=== PATIENT | male | born 1955 | race Two or more races ===

== ENCOUNTER → 2022-05-23 | Outpatient (CLI) | payer MEDICARE, OTHER ==
[2022-05-23 13:02] LABS: BILIRUBIN,URINE NEGATIVE (NEGATIVE); COLOR,URINE YELLOW (YELLOW); LEUKOCYTE ESTERASE ,URINE NEGATIVE (NEGATIVE); NITRITE, URINE NEGATIVE (NEGATIVE); PH,URINE 5.5 (5.0-8.0); PROTEIN,URINE NEGATIVE (NEGATIVE); UGLUCOSE NEGATIVE (NEGATIVE); UROBILINOGEN,URINE 0.2 EU/dL (0.2)
[2022-05-23 13:05] LABS: BASOPHILS # (AUTO) 0.1 K/uL (0.0-0.2); BASOPHILS % (AUTO) 0.8 % (0.0-2.0); EOSINOPHILS % (AUTO) 1.9 % (0.0-6.0); HEMATOCRIT 41 % (39-51); LYMPHOCYTES # (AUTO) 1.8 K/uL (0.8-4.8); LYMPHOCYTES % (AUTO) 23.3 % (20.0-44.0); MEAN CORPUSCULAR HGB CONC 34 g/dl (31.0-36.0); MEAN CORPUSCULAR VOLUME 87 fL (80-96); MONOCYTES # (AUTO) 0.7 K/uL (0.1-1.30); MONOCYTES % (AUTO) 9.6 % (2.0-12.0); NEUTROPHILS % (AUTO) 64.4 % (43.0-81.0); PLATELET COUNT (AUTO) 230 K/uL (150-450); RED BLOOD CELL COUNT(AUTO) 4.72 MIL/uL (4.5-6.0); WHITE BLOOD COUNT (AUTO) 7.8 K/uL (4.3-11.0)
[2022-05-23 13:14] LABS: CALCIUM, SERUM 9.8 mg/dL (8.5-10.1); CREATININE 1.1 mg/dL (0.6-1.3); POTASSIUM 4.2 mmol/L (3.5-5.1)
== END | disposition home or self-care (01) ==
LOC: RAD 11:45
PROVIDERS: ATTEND Dentist Oral and Maxillofacial Surgery
DX: Z01.818 Encounter for other preprocedural examination (principal); R94.31 Abnormal electrocardiogram [ECG] [EKG]
CPT/HCPCS: 36415; 71045-TC; 80048-TC; 85025-TC; 85610-TC; 85730-TC

== ENCOUNTER 2022-06-03 11:31 | Outpatient (CLI) | payer MEDICARE, OTHER ==
[2022-06-08] MEDS ORDERED: ACET325T53 PO (15:43)
[2022-06-08] MEDS ORDERED: TRAM50TA2 PO (15:43)
[2022-06-08] MEDS ORDERED: AMOX1TAB16 PO (15:43)
== END 2022-06-03 23:59 | disposition home or self-care (01) ==
LOC: LAB 11:31
PROVIDERS: ATTEND Dentist Oral and Maxillofacial Surgery
DX: Z01.812 Encounter for preprocedural laboratory examination (principal); Z20.822 Contact with and (suspected) exposure to COVID-19
CPT/HCPCS: U0003; C9803

== ENCOUNTER 2022-06-07 05:33 | Inpatient (IN) | payer MEDICARE, OTHER ==
[~2022-06-07] VITALS: Ht 188 cm; Wt 104.3 kg
[2022-06-07] MEDS ORDERED: ANESTHESIA TRAY IN PYXIS 1 EA TRAY MC ONE (06:55)
[2022-06-07] MEDS ORDERED: DEXAMETHASONE SOD PHOSPHATE 10 MG/ML VIAL ONE (06:56)
[2022-06-07] MEDS ORDERED: LIDOCAINE 2%-EPI 1:100,000 30 ML VIAL ONE (06:56)
[2022-06-07] MEDS ORDERED: VANCOMYCIN 1 GM VIAL ONE (06:56)
[2022-06-07] MEDS ORDERED: OXYMETAZOLINE HCL NASAL SPRAY 30 ML BOTTLE NS ONE (06:58)
[2022-06-07] MEDS ORDERED: FENTANYL PF 100MCG/2ML AMPUL ONE (07:19)
[2022-06-07] MEDS ORDERED: ROCURONIUM BROMIDE 50 MG/5 ML ONE (07:19)
[2022-06-07] MEDS ORDERED: FAMOTIDINE/PF INJ 20 MG/2 ML VIAL IV ONE (07:19)
[2022-06-07] MEDS ORDERED: MIDAZOLAM HCL 2 MG/2ML VIAL ONE (07:27)
[2022-06-07] MEDS ORDERED: KETAMINE HCL IN 0.9 % NACL 5 ML ONE (07:28)
[2022-06-07] MEDS ORDERED: ALBUTEROL SULFATE 8 GM HFA.AER.AD IH ONE (07:31)
[2022-06-07] MEDS ORDERED: SEVOFLURANE 250 ML BOTTLE IH ONE (10:14)
[2022-06-07] MEDS ORDERED: IV NS 0.9% 1,000 ML IV PRN (12:30)
[2022-06-07] MEDS ORDERED: ACETAMINOPHEN 325 MG TABLET PO PRN (12:30)
--- NOTE | 2022-06-07 13:30 | NUR ---
MS UTILITY FORESTER NOTE (STATUS POST DAY SURGERY) Patient arrived to [facility]Surg. Unit, Room 317- bed 2, via gurney from status post surgery/recovery room, status post ORIF of the maxilla at 12:40 hours. . Patient was alert, oriented x 4, wide awake, irritable, but otherwise cooperative, speaking mostly Haitian. Vital signs were stable: BP = 131/68; HR= 87; RR= 20; T = 97.8 axillary; 96% on room air; pain = 6/10 level to back. Given tylenol 650 mg PO for back pain, results pending. Aspiration and fall precautions maintained. With the help of patient's daughter translating into Haitian, oriented patient to room and safety protocols.l Patient able to successfully swallow ice chips, sips of water and tylenol pills without any signs of aspiration. Will advance patient to soft diet for dinner. Will continue to monitor and care for patient per MD POC.
[2022-06-07] MEDS ORDERED: Z GUARD REMEDY 4 OZ OINT TP PRN (14:00)
[2022-06-07] MEDS ORDERED: MORPHINE SULFATE INJ 2 MG/ML DISP.SYRIN IV PRN (14:00)
[2022-06-07] MEDS ORDERED: MAGNESIUM HYDROXIDE 30 ML UDC PO PRN (14:00)
[2022-06-07] MEDS ORDERED: ZOLPIDEM TARTRATE 5 MG TABLET PO PRN (14:00)
[2022-06-07] MEDS ORDERED: ONDANSETRON HCL/PF 4 MG/2 ML VIAL IVP PRN (14:00)
[2022-06-07] MEDS ORDERED: MAG HYDROX/AL HYDROX/SIMETH 30 ML UDC PO PRN (14:00)
[2022-06-07] MEDS ORDERED: OLME1TAB90 PO (14:49)
[2022-06-07] MEDS ORDERED: ALLO300T2 PO (14:49)
[2022-06-07] MEDS ORDERED: ALBU18HF2 IH (14:49)
[2022-06-07] MEDS: IV NS 0.9% 1,000 ML IV PRN (15:25)
[2022-06-07] MEDS ORDERED: ALBUTEROL FS 2.5 MG/3 ML VIAL.NEB NEB PRN (15:30)
[2022-06-07 16:00] VITALS: BP 92/42
--- NOTE | 2022-06-07 18:53 | NUR ---
MS RN CLOSING NOTE (DAY SHIFT) Patient sleeping peacefully on left side of body, flat in bed, with even regular respirations without any signs of distress. Patient has PIV catheter # 20 gauge to left hand with clean, dry, intact dressing, patent, being infused with NS @75 mLs/hr. without any signs of complications of IV therapy. Fall precautions maintained : bed in lowest position; bed brakes locked; two bed side rails up; bed alarm on; and call lowry/light with bed side table within reach of patient. Patient did not like taste of dinner hospital food meal. Family brought in soft mashed potatoes which patient ate heartily. Will endorse to night shift manager RN for DANNIE.
--- NOTE | 2022-06-07 19:45 | NUR ---
MS RN CLOSING NOTES RECEIVED PATIENT IN BED AWAKE RESTING COMFORTABLY. A/O X 4. NO S/S OF PAIN NOTED AT THIS TIME. ON ROOM AIR, BREATHING EVEN AND UNLABORED, NO DISTRESS OR SHORTNESS OF BREATH NOTED. IV ACCESS ON LEFT HAND #20G RUNNING NS @ 75ML/HR. FALL AND SAFETY MEASURE IN PLACE WITH BED IN LOWEST LOCKED POSITION. BED ALARM ON. SIDE RAILS UP X 2. CALL LIGHT AND TRAY WITHIN EASY REACH. WILL CONTINUE TO MONITOR THE PATIENT. Addendum: 06/07/22 at 2203 by GOKUL LUIS RN MS RN OPENING NOTES
[2022-06-07 20:00] VITALS: BP 120/56
[2022-06-07] MEDS: AMOX/CLAVULANATE 875 MG TABLET PO SCH (21:15)
[2022-06-07] MEDS: ACETAMINOPHEN 325 MG TABLET PO PRN (21:23)
--- NOTE | 2022-06-07 21:23 | NUR ---
RN NOTES-TYLENOL GIVEN PATIENT C/O OF HEADACHE WITH A SCALE OF 5/10. TYLENOL 650MG TAB GIVEN PRN. WILL CONTINUE TO MONITOR THE PATIENT.
[2022-06-07 21:50] VITALS: BP 120/56
[2022-06-08 01:37] VITALS: BP 120/56
[2022-06-08] MEDS: IV NS 0.9% 1,000 ML IV PRN (02:41)
[2022-06-08 06:00] LABS: BASOPHILS % (AUTO) 0.2 % (0.0-2.0); EOSINOPHILS % (AUTO) 0.3 % (0.0-6.0); HEMATOCRIT 36 % (39-51); HEMOGLOBIN 11.8 g/dL (13.5-17.5); LYMPHOCYTES # (AUTO) 1.7 K/uL (0.8-4.8); LYMPHOCYTES % (AUTO) 11.7 % (20.0-44.0); MEAN CORPUSCULAR HGB CONC 33 g/dl (31.0-36.0); MEAN CORPUSCULAR VOLUME 88 fL (80-96); MONOCYTES # (AUTO) 1.1 K/uL (0.1-1.30); MONOCYTES % (AUTO) 7.6 % (2.0-12.0); NEUTROPHILS # (AUTO) 11.8 K/uL (1.8-8.9); NEUTROPHILS % (AUTO) 80.2 % (43.0-81.0); PLATELET COUNT (AUTO) 200 K/uL (150-450); WHITE BLOOD COUNT (AUTO) 14.7 K/uL (4.3-11.0)
[2022-06-08] MEDS: ACETAMINOPHEN 325 MG TABLET PO PRN (06:12)
--- NOTE | 2022-06-08 06:12 | NUR ---
RN NOTES-TYLENOL GIVEN PATIENT C/O OF HEADACHE WITH A SCALE OF 3/10. TYLENOL 650MG TAB GIVEN PRN. WILL CONTINUE TO MONITOR THE PATIENT.
[2022-06-08 06:23] LABS: CALCIUM, SERUM 8.5 mg/dL (8.5-10.1); CREATININE 1.1 mg/dL (0.6-1.3); MAGNESIUM 2.3 mg/dL (1.8-2.4); PHOSPHORUS 2.6 mg/dL (2.5-4.9)
--- NOTE | 2022-06-08 06:57 | NUR ---
MS RN OPENING NOTES PATIENT IN BED AWAKE RESTING COMFORTABLY. PATIENT IS MOSTLY AWAKE AT NIGHT. A/O X 4. NO S/S OF PAIN NOTED AT THIS TIME. ON ROOM AIR, BREATHING EVEN AND UNLABORED, NO DISTRESS OR SHORTNESS OF BREATH NOTED. IV ACCESS ON LEFT HAND #20G RUNNING NS @ 75ML/HR. FALL AND SAFETY MEASURE MAINTAINED WITH BED IN LOWEST LOCKED POSITION. BED ALARM ON. SIDE RAILS UP X 2. CALL LIGHT AND TRAY WITHIN EASY REACH. WILL ENDORSE TO THE NEXT SHIFT. Addendum: 06/08/22 at 0658 by GOKUL LUIS RN MS ELIZABETH CLOSING NOTES
[2022-06-08 07:00] VITALS: BP 116/62
--- NOTE | 2022-06-08 07:00 | NUR ---
MS RN CLOSING NOTES RECEIVED PATIENT IN BED AWAKE RESTING COMFORTABLY. PATIENT IS S/P ORIF MAXILLA. AZERBAIJANI SPEAKING WITH BASIC ITALIAN. 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 A/O X 4. NO S/S OF PAIN, SHORTNESS OF BREATH OR ANY DISTRESS NOTED. ON ROOM AIR, BREATHING EVEN AND UNLABORED, IV ACCESS ON LEFT HAND #20G RUNNING NS @ 75ML/HR. FALL AND SAFETY MEASURE IN PLACE WITH BED IN LOWEST LOCKED POSITION. BED ALARM ON. SIDE RAILS UP X 2. CALL LIGHT AND TRAY WITHIN EASY REACH. WILL CONTINUE TO MONITOR THE PATIENT.
[2022-06-08] MEDS ORDERED: ALLOPURINOL 100 MG TABLET PO SCH (09:00)
[2022-06-08] MEDS ORDERED: Medication Not On Formulary EA (Olmesartan/Hydrochlorothiazide (Olmesartan-Hctz 40-12.5 PO SCH (09:00)
[2022-06-08] MEDS ORDERED: HYDROCHLOROTHIAZIDE 25 MG TABLET PO SCH (09:00)
[2022-06-08] MEDS ORDERED: LOSARTAN POTASSIUM 50 MG TABLET PO SCH (09:00)
[2022-06-08] MEDS: AMOX/CLAVULANATE 875 MG TABLET PO SCH (09:24)
[2022-06-08] MEDS ORDERED: TRAM50TA2 PO (15:43)
[2022-06-08] MEDS ORDERED: ACET325T53 PO (15:43)
[2022-06-08] MEDS ORDERED: AMOX1TAB16 PO (15:43)
[2022-06-08 16:00] VITALS: BP 118/62
--- NOTE | 2022-06-08 18:56 | NUR ---
MS JOHNSONTREATMENT PLANT OPERATOR NOTES DISCHARGE PATIENT TO HOME IN STABLE CONDITION, A/O X4 ABLE TO MAKE NEEDS KNOWN. PATIENT'S BELONGINGS ACCOUNTED FOR, IV REMOVED-C/D/I, PATIENT WAS GIVEN DISCHARGE INSTRUCTIONS BOTH VERBALLY AND IN WRITING. PATIENT IS [place] SPEAKING WITH DAUGHTER AT BEDSIDE TRANSLATING IN ITALIAN. PATIENT LEFT THE UNIT AT 1730 IN STABLE CONDITION VIA PRIVATE CAR WITH DAUGHTER PRESENT. Addendum: 06/08/22 at 1906 by NORM FRANKEL JR, RN CHARGE NURSE AWARE OF THE DISCHARGE
== END 2022-06-08 17:30 | disposition home or self-care (01) | DRG 140 ==
LOC: DS 05:33 → MED 05:34
PROVIDERS: ADMIT Nurse Practitioner Acute Care; ATTEND Nurse Practitioner Acute Care
PROC: 0NUT07Z Supplement Right Mandible with Autologous Tissue Substitute, Open Approach (ICD-10-PCS; principal; 2022-06-07)
PROC: 0NUV07Z Supplement Left Mandible with Autologous Tissue Substitute, Open Approach (ICD-10-PCS; principal; 2022-06-07)
PROC: 0NBR0ZX Excision of Maxilla, Open Approach, Diagnostic (ICD-10-PCS; principal; 2022-06-07)
PROC: 0NBV0ZX Excision of Left Mandible, Open Approach, Diagnostic (ICD-10-PCS; principal; 2022-06-07)
PROC: 0NSR04Z Reposition Maxilla with Internal Fixation Device, Open Approach (ICD-10-PCS; principal; 2022-06-07)
PROC: 0NST04Z Reposition Right Mandible with Internal Fixation Device, Open Approach (ICD-10-PCS; principal; 2022-06-07)
PROC: 0NUR07Z Supplement Maxilla with Autologous Tissue Substitute, Open Approach (ICD-10-PCS; principal; 2022-06-07)
PROC: 09BR0ZZ Excision of Left Maxillary Sinus, Open Approach (ICD-10-PCS; principal; 2022-06-07)
PROC: 0NBT0ZX Excision of Right Mandible, Open Approach, Diagnostic (ICD-10-PCS; principal; 2022-06-07)
PROC: 0NSV04Z Reposition Left Mandible with Internal Fixation Device, Open Approach (ICD-10-PCS; principal; 2022-06-07)
DX: M27.2 Inflammatory conditions of jaws (principal); J18.9 Pneumonia, unspecified organism; S02.40CA Maxillary fracture, right side, initial encounter for closed fracture; S02.40DA Maxillary fracture, left side, initial encounter for closed fracture; S02.609A Fracture of mandible, unspecified, initial encounter for closed fracture; J32.0 Chronic maxillary sinusitis; X58.XXXA Exposure to other specified factors, initial encounter; Y93.9 Activity, unspecified; Y92.9 Unspecified place or not applicable; D72.829 Elevated white blood cell count, unspecified; K21.9 Gastro-esophageal reflux disease without esophagitis; J45.909 Unspecified asthma, uncomplicated; I10 Essential (primary) hypertension; G20 Parkinson's disease; F17.210 Nicotine dependence, cigarettes, uncomplicated; E78.5 Hyperlipidemia, unspecified
CPT/HCPCS: 36415; 71250-TC; 80048-TC; 83735-TC; 84100-TC; 85025-TC; 86850-TC; 87081-TC; A4217; A4223; C1713; C1781; G0378; J1100; J2250; J2405; J2704; J3010; J3370; J3490; J7030; J7050

== ENCOUNTER 2022-11-29 05:42 | Inpatient (IN) | payer MEDICARE, OTHER ==
[~2022-11-29] VITALS: Ht 185.4 cm; Wt 114.3 kg
[2022-11-29] VITALS (7 sets, daily range): BP systolic 115–161; BP diastolic 62–121; TEMP 97.5–99.5; O2SAT 95–99
[~2022-11-29 05:42] MED LIST: ACET325T53 PO; ALBU18HF2 IH; ALLO300T2 PO; AMOX1TAB16 PO; OLME1TAB90 PO; TRAM50TA2 PO
[2022-11-29] MEDS ORDERED: dexaMETHasone SOD PHOSPHATE 10 MG/ML VIAL ONE (07:11)
[2022-11-29] MEDS ORDERED: LIDOCAINE 2%-EPI 1:100,000 30 ML VIAL ONE (07:11)
[2022-11-29] MEDS ORDERED: VANCOMYCIN 1 GM VIAL ONE (07:11)
[2022-11-29] MEDS ORDERED: FENTANYL PF 250MCG/5ML AMPUL ONE (07:43)
[2022-11-29] MEDS ORDERED: SEVOFLURANE 250 ML BOTTLE IH ONE (08:06)
[2022-11-29] MEDS ORDERED: IV NS 0.9% 1,000 ML IV PRN (10:00)
[2022-11-29] MEDS ORDERED: ONDANSETRON HCL/PF 4 MG/2 ML VIAL IV PRN (10:00)
[2022-11-29] MEDS ORDERED: HYDROMORPHONE 1 MG/1 ML DISP.SYRIN IV PRN (10:00)
[2022-11-29] MEDS ORDERED: ACETAMINOPHEN 325 MG TABLET PO PRN (10:00)
[2022-11-29] MEDS ORDERED: CLON0.5T4 PO (11:31)
[2022-11-29] MEDS ORDERED: AMYL1CAP58 PO (11:31)
[2022-11-29] MEDS ORDERED: MECL-159 PO (11:31)
[2022-11-29] MEDS ORDERED: OLME1TAB88 PO (11:31)
[2022-11-29] MEDS ORDERED: HYDR-3980 PO (11:32)
[2022-11-29] MEDS ORDERED: AMOX1TAB16 PO (11:32)
[2022-11-29] MEDS ORDERED: DICL1PAT7 TP (12:40)
[2022-11-29] MEDS ORDERED: VILA10TA PO (12:40)
[2022-11-29] MEDS ORDERED: ATOR10TA PO (12:40)
[2022-11-29] MEDS ORDERED: MELA5TAB PO (12:40)
[2022-11-29] MEDS ORDERED: CARB1TAB21 PO (12:40)
[2022-11-29] MEDS ORDERED: PRIM50TA27 PO (12:40)
[2022-11-29] MEDS ORDERED: CELE200C PO (12:40)
[2022-11-29] MEDS ORDERED: MECLIZINE HCL 25 MG TABLET PO PRN (16:00)
[2022-11-29] MEDS ORDERED: clonazePAM 0.5 MG TABLET PO PRN (16:00)
[2022-11-29] MEDS: CARBIDOPA/LEVODOPA 25/100 MG 1 UDTAB PO SCH (17:00)
[2022-11-29] MEDS: VANCOMYCIN 1 GM in IV D5W 250ml IV SCH (20:51)
[2022-11-30 08:00] VITALS: BP 111/60; TEMP 97.9; O2SAT 98
[2022-11-30] MEDS: VANCOMYCIN 1 GM in IV D5W 250ml IV SCH (08:15)
[2022-11-30 08:45] VITALS: BP 111/60
[2022-11-30] MEDS: CARBIDOPA/LEVODOPA 25/100 MG 1 UDTAB PO SCH (08:46)
[2022-11-30] MEDS ORDERED: LOSARTAN POTASSIUM 50 MG TABLET PO SCH (09:00)
[2022-11-30] MEDS ORDERED: ATORVASTATIN 10 MG TABLET PO SCH (09:00)
[2022-11-30] MEDS ORDERED: HYDROCHLOROTHIAZIDE 25 MG TABLET PO SCH (09:00)
[2022-11-30] MEDS ORDERED: PRIMIDONE 50 MG TABLET PO SCH (09:00)
[2022-11-30] MEDS ORDERED: ALLOPURINOL 100 MG TABLET PO SCH (09:00)
== END 2022-11-30 11:45 | disposition home or self-care (01) | DRG 908 ==
LOC: DS 05:42 → MED 05:44
PROVIDERS: ADMIT Internal Medicine; ATTEND Internal Medicine
PROC: 0NST04Z Reposition Right Mandible with Internal Fixation Device, Open Approach (ICD-10-PCS; principal; 2022-11-29)
PROC: 0NSR04Z Reposition Maxilla with Internal Fixation Device, Open Approach (ICD-10-PCS; 2022-11-29)
PROC: 0NUR07Z Supplement Maxilla with Autologous Tissue Substitute, Open Approach (ICD-10-PCS; 2022-11-29)
PROC: 0NUT07Z Supplement Right Mandible with Autologous Tissue Substitute, Open Approach (ICD-10-PCS; 2022-11-29)
PROC: 0NP00JZ Removal of Synthetic Substitute from Skull, Open Approach (ICD-10-PCS; 2022-11-29)
PROC: 0NSV04Z Reposition Left Mandible with Internal Fixation Device, Open Approach (ICD-10-PCS; 2022-11-29)
PROC: 0NPW04Z Removal of Internal Fixation Device from Facial Bone, Open Approach (ICD-10-PCS; 2022-11-29)
PROC: 0NBT0ZX Excision of Right Mandible, Open Approach, Diagnostic (ICD-10-PCS; 2022-11-29)
PROC: 0NBR0ZX Excision of Maxilla, Open Approach, Diagnostic (ICD-10-PCS; 2022-11-29)
DX: T86.831 Bone graft failure (principal); M84.6 Pathological fracture in other disease; T84.7XXA Infection and inflammatory reaction due to other internal orthopedic prosthetic devices, implants and grafts, initial encounter; I10 Essential (primary) hypertension; E78.5 Hyperlipidemia, unspecified; F17.210 Nicotine dependence, cigarettes, uncomplicated; J45.909 Unspecified asthma, uncomplicated; Y83.2 Surgical operation with anastomosis, bypass or graft as the cause of abnormal reaction of the patient, or of later complication, without mention of misadventure at the time of the procedure; Z95.810 Presence of automatic (implantable) cardiac defibrillator; G20.A1 Parkinson's disease without dyskinesia, without mention of fluctuations; Y92.89 Other specified places as the place of occurrence of the external cause
CPT/HCPCS: 36415; 80202-TC; 82962-TC; 87081-TC; A4223; C1713; G0378; J0461; J1100; J2704; J3010; J3370; J3490; J7030; J7042; J7060

== ENCOUNTER 2023-05-16 05:44 | Inpatient (IN) | payer MEDICARE, OTHER ==
[2023-05-16] VITALS (9 sets, daily range): BP systolic 102–129; BP diastolic 58–71; TEMP 97.5–98.8; O2SAT 93–98
[~2023-05-16] VITALS: Ht 188 cm; Wt 108.9 kg
[~2023-05-16 05:44] MED LIST changes: -ACET325T53 PO; +AMYL1CAP58 PO; +ATOR10TA PO; +CARB1TAB21 PO; +CELE200C PO; +CLON0.5T4 PO; +DICL1PAT7 TP; +HYDR-3980 PO; +MECL-159 PO; +MELA5TAB PO; +OLME1TAB88 PO; -OLME1TAB90 PO; +PRIM50TA27 PO; -TRAM50TA2 PO; +VILA10TA PO
[2023-05-16] MEDS ORDERED: dexaMETHasone SOD PHOSPHATE 2 ML ONE (07:41)
[2023-05-16] MEDS ORDERED: LIDOCAINE 2%-EPI 1:100,000 30 ML VIAL ONE (07:41)
[2023-05-16] MEDS ORDERED: ANESTHESIA TRAY IN PYXIS 1 EA TRAY MC ONE (07:41)
[2023-05-16] MEDS ORDERED: VANCOMYCIN 1 GM VIAL ONE (07:41)
[2023-05-16] MEDS ORDERED: FENTANYL PF 100MCG/2ML AMPUL ONE (07:47)
[2023-05-16] MEDS ORDERED: SUCCINYLCHOLINE CHLORIDE 20 MG/ML VIAL ONE (09:23)
[2023-05-16] MEDS ORDERED: ONDANSETRON HCL/PF 4 MG/2 ML VIAL IVP PRN (12:30)
[2023-05-16] MEDS: IV NS 0.9% 1,000 ML IV PRN (13:00)
[2023-05-16] MEDS: HYDROMORPHONE 1 MG/1 ML DISP.SYRIN IV PRN (15:37)
[2023-05-16] MEDS: ACETAMINOPHEN 325 MG TABLET PO PRN (22:28)
[2023-05-17 08:00] VITALS: BP 105/56; TEMP 97.6; O2SAT 95
== END 2023-05-17 11:10 | disposition home or self-care (01) | DRG 908 ==
LOC: DS 05:44 → MED 12:45
PROC: 0NPW04Z Removal of Internal Fixation Device from Facial Bone, Open Approach (ICD-10-PCS; principal; 2023-05-16)
PROC: 0NPW0JZ Removal of Synthetic Substitute from Facial Bone, Open Approach (ICD-10-PCS; 2023-05-16)
PROC: 0NUV0JZ Supplement Left Mandible with Synthetic Substitute, Open Approach (ICD-10-PCS; 2023-05-16)
PROC: 0NUR07Z Supplement Maxilla with Autologous Tissue Substitute, Open Approach (ICD-10-PCS; 2023-05-16)
PROC: 0NBT0ZZ Excision of Right Mandible, Open Approach (ICD-10-PCS; 2023-05-16)
DX: T86.831 Bone graft failure (principal); S02.40CK Maxillary fracture, right side, subsequent encounter for fracture with nonunion; T84.69XA Infection and inflammatory reaction due to internal fixation device of other site, initial encounter; T84.7XXA Infection and inflammatory reaction due to other internal orthopedic prosthetic devices, implants and grafts, initial encounter; S02.40DK Maxillary fracture, left side, subsequent encounter for fracture with nonunion; T81.83XA Persistent postprocedural fistula, initial encounter; S02.69XK Fracture of mandible of other specified site, subsequent encounter for fracture with nonunion; E78.5 Hyperlipidemia, unspecified; I10 Essential (primary) hypertension; J45.909 Unspecified asthma, uncomplicated; K21.9 Gastro-esophageal reflux disease without esophagitis; Z87.891 Personal history of nicotine dependence; G20.A1 Parkinson's disease without dyskinesia, without mention of fluctuations; Z95.810 Presence of automatic (implantable) cardiac defibrillator; Y83.2 Surgical operation with anastomosis, bypass or graft as the cause of abnormal reaction of the patient, or of later complication, without mention of misadventure at the time of the procedure; Y92.009 Unspecified place in unspecified non-institutional (private) residence as the place of occurrence of the external cause
CPT/HCPCS: 87081-TC; 88300-TC; 88304-TC; 88311-TC; G0378; J0330; J1100; J1170; J2405; J2704; J2765; J3010; J3370; J3490; J7030; J7120